=== PATIENT | male | born 1975 | race Hispanic/Latino ===

== ENCOUNTER 2021-02-09 03:15 | Emergency (ER) | payer SELFPAY ==
[2021-02-09 04:01] LABS: Absolute Lymphocytes (CBC) 2.8 K/uL (0.7-4.9); Basophils % 1.3 % (0-1.3); Hematocrit 46.1 % (39.6-49.0); Lymphocytes % 32.6 % (15.3-44.8); MPV 11.6 fL (7.6-11.3); RBC Red Blood Cell Count 4.97 M/uL (4.33-5.43)
[2021-02-09 04:02] LABS: Protime INR 0.9
[2021-02-09 04:15] LABS: ALT/SGPT 70 U/L (12-78); Albumin 3.9 g/dL (3.4-5.0); Alkaline Phosphatase 60 U/L (45-117); BUN Blood Urea Nitrogen 10 mg/dL (7-18); Bicarbonate 19 mmol/L (21-32); Bilirubin Direct < 0.1 mg/dL (0-0.2); Bilirubin Total 0.1 mg/dL (0.2-1.0); Glucose Level 135 mg/dL (74-106); Protein, Total 7.7 g/dL (6.4-8.2); Sodium Level 140 mmol/L (136-145)
[2021-02-09 04:16] LABS: AST/SGOT 30 U/L (15-37); Potassium 3.5 mmol/L (3.5-5.1)
[2021-02-09] MEDS ORDERED: NA CHLORIDE 0.9% 1,000 ML ONE (04:47)
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
[2021-02-09] MEDS ORDERED: TETANUS & DIPHTHERIA TOX,ADULT 0.5 ML VIAL ONE (07:06)
[2021-02-09] MEDS ORDERED: DERMABOND SKIN ADHESIVE TOP ONE (07:07)
[2021-02-09 08:10] VITALS: TEMP 98.7
[2021-02-09 08:11] VITALS: BP 105/55; O2SAT 100
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
== END 2021-02-09 08:03 | disposition home or self-care (01) ==
LOC: ER 03:15
PROC: 08QNXZZ Repair Right Upper Eyelid, External Approach (ICD-10-PCS; principal; 2021-02-09)
DX: S02.31XA Fracture of orbital floor, right side, initial encounter for closed fracture (principal); S02.2XXA Fracture of nasal bones, initial encounter for closed fracture; S01.111A Laceration without foreign body of right eyelid and periocular area, initial encounter; F10.129 Alcohol abuse with intoxication, unspecified; Y04.2XXA Assault by strike against or bumped into by another person, initial encounter; Y93.89 Activity, other specified; Y92.9 Unspecified place or not applicable; Z23 Encounter for immunization
CPT/HCPCS: 36415; 70450; 70486; 72125; 76377; 80048; 80076; 80320; 85025; 85610; 85730; 86850; 86900; 86901; 90471; 90714; 96360; 96361; 99284; J7030